=== PATIENT | male | born 1950 | race Caucasian/White ===

== ENCOUNTER 2024-09-10 12:07 | Emergency (ER) | payer OTHER ==
[~2024-09-10] VITALS: Ht 177.8 cm; Wt 84.0 kg
[2024-09-10 12:22] VITALS: BP 131/92; PULSE 150; RESP 20; TEMP 98.5; O2SAT 95
--- NOTE | 2024-09-10 12:22 | ECG ---
[facility] Test Date: 2024-09-10 Test Time: 12:14:24 Pat Name: SURESH LAUREN Department: ER Room: Gender: M [employer]: JOSY : 1950 Requested By: JACQUELIN GUARDADO Order Number: [id number] Reading MD: Jose Stevenson Measurements Intervals [place] Rate: 150 P: 0 [place]: 0 QRS: 4 QRSD: 81 T: 106 QT: 300 QTc: 474 Interpretive Statements Atrial fibrillation with rapid V-rate Repolarization abnormality, prob rate related Baseline wander in lead(s) II,III,aVF Electronically Signed On 09-10-2024 14:13:49 PDT by Jose Stevenson Please click the below link to view image of tracing.
== END 2024-09-10 12:34 | disposition left against medical advice (07) ==
LOC: ER 12:07
DX: R00.2 Palpitations (principal); N50.89 Other specified disorders of the male genital organs; Z53.21 Procedure and treatment not carried out due to patient leaving prior to being seen by health care provider
CPT/HCPCS: 93005